=== PATIENT | female | born 1985 | race American Indian/Alaskan Native ===

== ENCOUNTER 2021-06-28 12:44 | Emergency (ER) | payer SELFPAY ==
[2021-06-28] MEDS ORDERED: LIDOCAINE VISCOUS 2% 15 ML ORAL LIQD PO ONE (13:34)
[2021-06-28] MEDS ORDERED: ALUM-MAG HYDROXIDE-SIMETHICONE 200-200-20MG/5ML ORAL LIQD 30 ML PO ONE (13:34)
--- NOTE | 2021-06-28 13:36 | Event Note ---
ED Screening Note Date of service: 06/28/21 Time: 13:35 ED Screening Note: This is a pleasant 36-year-old female presents emerged from chief complaint of epigastric, right upper quadrant abdominal pain has been ongoing for the past 3 days associated nausea and vomiting. She also reports she has been having cough and congestion and feels like she is unable to fully exhale. She denies any chest pain, hematemesis, melena, she said, weakness or any other associated symptoms. This initial assessment/diagnostic orders/clinical plan/treatment(s) is/are subject to change based on patients health status, clinical progression and re- assessment by fellow clinical providers in the ED. Further treatment and workup at subsequent clinical providers discretion. Patient/guardian urged not to elope from the ED as their condition may be serious if not clinically assessed and managed. Initial orders include: CBC, CMP, lipase, urinalysis, urine hCG, chest x-ray, ultrasound gallbladder. DuoNeb, GI cocktail
[2021-06-28] MEDS ORDERED: IPRATROPIUM/ALBUTEROL SULFATE 3 ML AMPUL.NEB IH SCH (14:00)
[2021-06-28 14:33] LABS: HCG Qualitative,Urine Negative (Negative)
[2021-06-28 14:34] LABS: Bilirubin,Urine NEG (Negative); Blood,Urine NEG (Negative); Color,Urine Yellow (Yellow); Mucus,Urine 1+ /HPF; Protein,Urine <15 mg/dL mg/dL (Negative); Urobilinogen,Urine < 2.0 mg/dL (<2.0)
[2021-06-28 14:54] LABS: Eosinophils # (Auto) 0.1 K/mm3 (0.0-0.4); Eosinophils % (Auto) 1.5 % (0.0-4.3); Monocytes # (Auto) 0.3 K/mm3 (0.0-0.8)
--- NOTE | 2021-06-28 14:55 | Ultrasound Report ---
ULTRASOUND ABDOMEN, COMPLETE INDICATION / CLINICAL INFORMATION: RUQ pain, N/V. COMPARISON: None available. FINDINGS: PANCREAS: Not well seen due to overlying bowel gas. ABDOMINAL AORTA: No significant abnormality. IVC: No significant abnormality. LIVER: The liver is echogenic. Liver measures approximately 15.9 cm. GALLBLADDER: Multiple gallstones without sonographic evidence of cholecystitis. BILE DUCTS: No significant abnormality. Common bile duct measures 4 mm. KIDNEYS: Right: No significant abnormality. Left: No significant abnormality. SPLEEN: No significant abnormality. FREE FLUID: None. ADDITIONAL FINDINGS: None. IMPRESSION: 1. Hepatic steatosis. 2. Cholelithiasis without sonographic evidence of acute cholecystitis. Signer Name: Gareth Marcano MD Signed: 06/28/2021 2:51 PM Workstation Name: [email or web address]
[2021-06-28 15:15] LABS: Basophils % (Auto) 0.6 % (0.0-1.8); Hematocrit 37.7 % (30.3-42.9); Hemoglobin 12.3 gm/dl (10.1-14.3); Lymphocytes # (Auto) 1.7 K/mm3 (1.2-5.4); Lymphocytes % (Auto) 25.2 % (13.4-35.0); Mean Corpuscular HGB Conc 33 % (30-34); Mean Corpuscular Volume 77 fl (79-97); Platelet Count 328 K/mm3 (140-440); Red Blood Count 4.87 M/mm3 (3.65-5.03); Red Cell Distribution Width 15.1 % (13.2-15.2)
--- NOTE | 2021-06-28 15:22 | XRay Report ---
CHEST 2 VIEWS INDICATION / CLINICAL INFORMATION: Shortness of breath and cough.. COMPARISON: None available. FINDINGS: SUPPORT DEVICES: None. HEART / MEDIASTINUM: The heart size and pulmonary vasculature are normal. LUNGS / PLEURA: No significant pulmonary or pleural abnormality. No pneumothorax. ADDITIONAL FINDINGS: No significant additional findings. IMPRESSION: No acute findings. Signer Name: Dario Mcknight MD Signed: 06/28/2021 3:17 PM Workstation Name: [id number]
[2021-06-28 15:39] LABS: Alanine Aminotransferase 16 units/L (7-56); Albumin 4.1 g/dL (3.9-5); Blood Urea Nitrogen 8 mg/dL (7-17); Calcium 9.9 mg/dL (8.4-10.2); Hemolysis Index 4
[2021-06-28 15:40] LABS: BUN/Creatinine Ratio 16
[2021-06-28] MEDS ORDERED: cloNIDine 0.1 MG TAB PO ONE (17:05)
--- NOTE | 2021-06-28 18:37 | Emergency Department Report ---
ED Shortness of Breath HPI - General Chief Complaint: Dyspnea/Respdistress Stated Complaint: PRESSURE IN CHEST/STOMACH PAIN Time Seen by Provider: 06/28/21 14:02 Source: patient Mode of arrival: Ambulatory Limitations: No Limitations - History of Present Illness Initial Comments: Coughing x a few days, sounds congested. c/o chest pressure and abd pressure x a few days. MD Complaint: shortness of breath -: hour(s) Pain Scale: 2 Quality: aching Consistency: intermittent Worsens With: nothing - Related Data Previous Rx's Medication Instructions Recorded Last Taken Type amLODIPine 5 mg PO DAILY #30 tab 06/28/21 Unknown Rx Allergies Allergy/AdvReac Type Severity Reaction Status Date / Time No Known Allergies Allergy Unverified 06/28/21 12:56 ED Review of Systems ROS: Stated complaint: PRESSURE IN CHEST/STOMACH PAIN Other details as noted in HPI Constitutional: denies: chills, fever Eyes: denies: eye pain, eye discharge, vision change ENT: denies: ear pain, throat pain Respiratory: denies: cough, shortness of breath, wheezing Cardiovascular: denies: chest pain, palpitations Endocrine: no symptoms reported Gastrointestinal: denies: abdominal pain, nausea, diarrhea Genitourinary: denies: urgency, dysuria, discharge Musculoskeletal: denies: back pain, joint swelling, arthralgia Skin: denies: rash, lesions Neurological: denies: headache, weakness, paresthesias Psychiatric: denies: anxiety, depression Hematological/Lymphatic: denies: easy bleeding, easy bruising ED Past Medical Hx - Past Medical History Previous Medical History?: No Hx Hypertension: No - Medications Home Medications: Home Medications Medication Instructions Recorded Confirmed Last Taken Type amLODIPine 5 mg PO DAILY #30 tab 06/28/21 Unknown Rx ED Physical Exam - General Limitations: No Limitations General appearance: alert, in no apparent distress - Head Head exam: Present: atraumatic, normocephalic - Eye Eye exam: Present: normal appearance - ENT ENT exam: Present: mucous membranes moist - Neck Neck exam: Present: normal inspection - Respiratory Respiratory exam: Present: normal lung sounds bilaterally. Absent: respiratory distress - Cardiovascular Cardiovascular Exam: Present: regular rate, normal rhythm. Absent: systolic murmur, diastolic murmur, rubs, gallop - GI/Abdominal GI/Abdominal exam: Present: soft, normal bowel sounds - Extremities Exam Extremities exam: Present: normal inspection - Back Exam Back exam: Present: normal inspection - Neurological Exam Neurological exam: Present: alert, oriented X3 - Psychiatric Psychiatric exam: Present: normal affect, normal mood - Skin Skin exam: Present: warm, dry, intact, normal color. Absent: rash ED Course Vital Signs 06/28/21 06/28/21 12:58 17:03 Temperature 98.4 F Pulse Rate 109 H 89 Respiratory 18 Rate Blood Pressure 152/105 175/111 [Right] O2 Sat by Pulse 98 97 Oximetry ED Medical Decision Making - Lab Data Result diagrams: 06/28/21 14:38 06/28/21 14:38 - Medical Decision Making work up neg , US shwoed galls tones no cholecytitis , , BP was elevated clonidine given , 140/890 will start her on BP meds Critical care attestation.: If time is entered above; I have spent that time in minutes in the direct care of this critically ill patient, excluding procedure time. ED Disposition Clinical Impression: Gall stones, Uncontrolled hypertension Disposition: 01 HOME / SELF CARE / HOMELESS Is pt being admited?: No Does the pt Need Aspirin: No Condition: Stable Instructions: Hypertension (ED), Cholelithiasis, Hypertension, Adult, [id number] Referrals: SABI ALBARRAN [Other] - 3-5 Days
[2021-06-28 18:51] VITALS: BP 143/103
== END 2021-06-28 18:52 | disposition home or self-care (01) ==
LOC: ED 12:44
DX: K80.80 Other cholelithiasis without obstruction (principal); R03.0 Elevated blood-pressure reading, without diagnosis of hypertension
CPT/HCPCS: 36415; 71046; 76705; 80053; 81001; 81025; 83690; 83880; 85025; 94640; 99284